=== PATIENT | male | born 1945 | race Hispanic/Latino ===

== ENCOUNTER 2018-04-14 11:05 | Day surgery (SDC) | payer MEDICARE ==
[~2018-04-14 11:05] MED LIST: ANCEF/STERILE WATER 2 GM/20 ML 2 GM/20 ML SYRINGE IV NR; ANCEF/STERILE WATER 2 GM/20 ML IV NR; DILAUDID IV PRN; NACL 0.9% 1000 ML 1,000 ML IV SCH; VERSED IV NR; ZOFRAN IV PRN
[2018-04-14] MEDS ORDERED: ANCEF/STERILE WATER 2 GM/20 ML IV NR (12:00)
--- NOTE | 2018-04-14 12:01 | Post Operative Note ---
Date of procedure: 04/14/18 Pre-op diagnosis: r renal stone Post-op diagnosis: same Findings: as above Procedure: r eswl Anesthesia: PACO Surgeon: RAUL FARIAS Estimated blood loss: none Pathology: none Condition: stable Disposition: PACU
--- NOTE | 2018-04-14 12:02 | Discharge Summary ---
Short Stay Discharge Plan Activity: other (no straining ) Weight Bearing Status: Full Weight Bearing Diet: low fat, low cholesterol, low salt Special Instructions: other (inc fluids ) Durable Medical Equipment Needed Upon Discharge: other Follow up with: EMILY GRIER MD [Primary Care Provider] - 7 Days ARNOLD CARDENAS MD [Staff Physician] - 7 Days
[2018-04-14] MEDS ORDERED: DIPRIVAN 10 MG/ML IV ONE (12:11)
[2018-04-14] MEDS ORDERED: XYLOCAINE MPF 2% ONE (12:11)
[2018-04-14] MEDS ORDERED: SUBLIMAZE ONE (12:13)
[2018-04-14] MEDS ORDERED: ePHEDrine 50 MG/5 ML-0.9% NACL IV ONE (12:43)
--- NOTE | 2018-04-14 12:55 | Operative Report ---
PREOPERATIVE DIAGNOSIS: Right renal pelvic stone. POSTOPERATIVE DIAGNOSIS: Right renal pelvic stone. PROCEDURE: Right in situ ESWL. SURGEON: Jeff Modi MD ANESTHESIA: General. FINDINGS: This is a gentleman with intermittent pain, had a right UPJ stone approximately 1 cm. This was well visualized on KUB. DESCRIPTION OF PROCEDURE: The patient was brought to lithotripsy room and placed on the table. Stone was well localized. Stone was isolated in both the AP and oblique image. Shocks were begun at 1 kV, increased to maximum of 5 kV. A total of 2500 shocks were given. The patient tolerated the procedure well. There was some fragmentation. The patient understands he may need a staged procedure, with a followup lithotripsy laser or even a percutaneous nephrolithotomy. The patient tolerated the procedure well and brought to recovery in stable condition. JOB# [id number] MIN/GABO
--- NOTE | 2018-04-14 12:56 | Anesthesia Consultation ---
Anesthesia Consult and Med Hx Date of service: 04/14/18 - Airway Anesthetic Teeth Evaluation: Good ROM Head & Neck: Adequate Mental/Hyoid Distance: Adequate Mallampati Class: Class II Intubation Access Assessment: Probably Good - Pulmonary Exam CTA: Yes - Cardiac Exam Cardiac Exam: RRR - Pre-Operative Health Status ASA Pre-Surgery Classification: ASA2 Proposed Anesthetic Plan: General - Pulmonary Hx Smoking: No Hx Sleep Apnea: Yes (DX SLEEP APNEA , NO CPAP USE.) - Cardiovascular System Hx Hypertension: No - Hematic Hx Anemia: Yes (NOT RECENT) - Other Systems Hx Cancer: No
--- NOTE | 2018-04-14 12:56 | Anesthesia Day of Surgery ---
Anesthesia Day of Surgery - Day of Surgery Patient Examined: Yes Patient H&P Reviewed: Yes Patient is NPO: Yes
[2018-04-14] MEDS ORDERED: ROBINUL ONE (13:01)
[2018-04-14 14:23] VITALS: BP 136/70
--- NOTE | 2018-04-14 14:31 | Post Anesthesia Evaluation ---
- Post Anesthesia Evaluation Patient Participated: Yes Airway Patent: Yes Stable Respiratory Function: Yes Nausea/Vomiting: No Temp > 96.8F: Yes Pain Manageable: Yes Adequeate Hydration: Yes Anesthesia Complications: No
== END 2018-04-14 14:27 | disposition home or self-care (01) ==
LOC: OR 11:05
PROVIDERS: ATTEND Urology
DX: N20.0 Calculus of kidney (principal); G47.30 Sleep apnea, unspecified; Z79.899 Other long term (current) drug therapy
CPT/HCPCS: 50590; J0690; J2250; J2704; J3010; J7030